=== PATIENT | female | born 1990 | race Caucasian/White ===

== ENCOUNTER 2017-04-19 11:03 | Emergency (ER) | payer MEDICAID, OTHER ==
[~2017-04-19] VITALS: Ht 162.6 cm; Wt 94.0 kg
[2017-04-19] MEDS ORDERED: KETOROLAC 30MG/ML VIAL IV STA (12:06)
[2017-04-19] MEDS ORDERED: ONDANSETRON HCL 4MG/2ML VIAL IV STA (12:06)
[2017-04-19] MEDS ORDERED: SODIUM CHLORIDE 0.9% 1,000 ML IV ONE (12:06)
[2017-04-19 13:02] LABS: HEMATOCRIT. 35.5 % (36.0-48.0); HEMOGLOBIN. 12.3 g/dL (12.0-16.0); MEAN CORPUSCULAR HEMOGLOBIN 31.8 pg (28.0-32.0); MEAN CORPUSCULAR VOLUME 91.8 fL (81.0-99.0); MEAN PLATELET VOLUME 7.8 fl (7.4-10.4); PLATELET 222 x1000/uL (130-400); RED BLOOD CELL COUNT 3.87 mill/uL (4.2-5.4); RED CELL DISTRIBUTION WIDTH 12.7 % (11.6-14.6)
[2017-04-19 13:10] LABS: CLARITY URINE CLEAR (CLEAR); COLOR URINE YELLOW (YELLOW); GLUCOSE URINE NEGATIVE (NEGATIVE); KETONES URINE NEGATIVE (NEGATIVE); LEUKOCYTE ESTERASE URINE TRACE (NEGATIVE); NITRITE URINE NEGATIVE (NEGATIVE); OCCULT BLOOD URINE 1+ (NEGATIVE); PH URINE 7.5 (4.5-8.0); PROTEIN URINE TRACE (NEGATIVE); SPECIFIC GRAVITY URINE 1.015 (1.005-1.030)
[2017-04-19 13:11] LABS: INR 1.1; PROTHROMBIN TIME 11.8 sec
[2017-04-19 13:20] LABS: CARBON DIOXIDE 29 mEq/L (21-32); CHLORIDE 102 mEq/L (98-107)
[2017-04-19 13:26] LABS: HCG SCREEN NEGATIVE
[2017-04-19 13:37] LABS: PLATELET ESTIMATE NORMAL
[2017-04-19 13:51] VITALS: BP 114/57
== END 2017-04-19 14:20 | disposition home or self-care (01) ==
LOC: ER 12:28
DX: R51 Headache (principal); R55 Syncope and collapse; E86.0 Dehydration; R11.2 Nausea with vomiting, unspecified; R50.9 Fever, unspecified
CPT/HCPCS: 36415; 71010; 80053; 81001; 83605; 83690; 84703; 85025; 85610; 93005; 96361; 96374; 96375; 99285; J1885; J2405; J7030; Z7610